=== PATIENT | female | born 1990 | race Caucasian/White ===

== ENCOUNTER 2020-02-28 17:11 | Inpatient (IN) | payer OTHER, SELFPAY ==
--- NOTE | ~2020-02-28 | US_ITS ---
EXAMINATION: US breast BI limited EXAM DATE: 02/28/2020 17:57 INDICATION: Periareolar erythema, breast-feeding. Mastitis. Rule out abscess. TECHNIQUE: Multiple grayscale and Doppler images of the retroareolar regions bilaterally were obtaine d (by a technologist who performed the scan) and subsequently reviewed. There is no prior study for comparison. FINDINGS: Dilated tubular structures consistent with lactating ducts. No abscess identified in either breast. C onsider mastitis. IMPRESSION: 1. No retroareolar abscess. Reviewed, dictated and finalized at location A. IMPRESSION: 1. No retroareolar abscess.
[2020-02-28 17:17] VITALS: BP 110/61; PULSE 141; RESP 16; TEMP 37.2; O2SAT 97
--- NOTE | 2020-02-28 17:38 | ED.SKABFB ---
HPI - Skin/Abscess/Foreign Bdy General Chief complaint: Skin/Abscess/Foreign Body <TYRONE Browne Last Filed: 02/28/20 20:28> Stated complaint: rash on breast, painful, fever, possible mastitis <TYRONE Browne Last Filed: 02/28/20 20:28> Time Seen by Provider: 02/28/20 17:18 <TYRONE Browne Last Filed: 02/28/20 20:28> Source: patient <TYRONE Browne Last Filed: 02/28/20 20:28> Mode of arrival: ambulatory <TYRONE Browne Last Filed: 02/28/20 20:28> Limitations: no limitations <TYRONE Browne Last Filed: 02/28/20 20:28> History of Present Illness HPI narrative: This is a 29 year old female that presents to the ER for rash to bilateral breasts since yesterday. Reports redness, warmth and pain. Reports fevers as high as 103. Reports she was weaning and recently completely stopped pumping and breast feeding 3 days ago. Also reports vomiting. Denies purulent drainage. <TYRONE Browne Last Filed: 02/28/20 20:28> Related Data Home medications: Home Medications Medication Instructions Recorded Confirmed No Home Medications 02/28/20 02/28/20 <TYRONE Browne Last Filed: 02/28/20 20:28> Allergies/Adverse reactions: Allergies Allergy/AdvReac Type Severity Reaction Status Date / Time No Known Allergies Allergy Verified 02/28/20 17:24 <TYRONE Browne Last Filed: 02/28/20 20:28> Review of Systems Review of Systems: Narrative: CONSTITUTIONAL: Reports fever GASTROINTESTINAL: Reports vomiting SKIN: Reports erythema and warmth <TYRONE Browne Last Filed: 02/28/20 20:28> All systems reviewed & are unremarkable except as noted in HPI and below <TYRONE Browne Last Filed: 02/28/20 20:28> FORMERLY [facility] Family History Family History: Family History (Updated 04/23/20 @ 20:51 by Lizzie Doherty RN) Father Diabetes mellitus Hypertension <Ana Rosa Dao PA-C - Last Filed: 02/28/20 20:28> Social History Social History: Social History (Updated 02/28/20 @ 20:23 by Ana Rosa Dao PA-C) Smoking status: Never smoker Alcohol intake: never Substance use: never Gender identity (if verbalized by the patient): Female Spiritual care concerns: No Agree to blood products: Yes <Ana Rosa Dao PA-C - Last Filed: 02/28/20 20:28> Exam Narrative: Exam Narrative: GENERAL: Well-appearing, well-nourished, and in no acute distress. HEAD: Normocephalic, atraumatic. EYES: EOMI. CHEST: No respiratory distress. HEART: Tachycardic, regular rhythm. No murmur heard. Normal peripheral pulses. EXTREMITIES: Normal range of motion. No edema. SKIN: Warm, dry, no rash. NEURO: No focal deficits. Alert and oriented x3. PSYCH: Normal mood and affect BREAST: Bilateral breasts with moderate erythema and warmth <Ana Rosa Dao PA-C - Last Filed: 02/28/20 20:28> Course [employer]ER/PA Physician Supervision Attestation for Ana Rosa Dao at 1852. [id number] with the patient and her sister, the patient reports sore tender red breasts since November. She has been breast-feeding her 8-month-old baby, and stopped 2 days ago. She tried using her breast pump and that was also too painful to continue. She has had fever chills and vomiting in the last 2 days. She had seen her INJECTION MOLDING MACHINE SETTER who recommended some lotion. Now she has bilateral cellulitis surrounding the nipples including a good portion of the breast. I explained that we would give her IV antibiotics here, and possibly keep her overnight for more IV antibiotics. She agrees with the plan. Her has the baby. <Jessica Mesa MD - Last Filed: 02/28/20 22:30> Consultations Consultation #1: Spoke with Dr. Dior about patient and work-up who will admit for further antibiotics and observation <Ana Rosa Dao PA-C - Last Filed: 02/28/20 20:28> Date: 02/28/20 <Ana Rosa Dao PA-C - Last Filed: 02/28/20 20:28> Time:
[2020-02-28 17:54] LABS: Basophils Absolute Auto 0.1 K/mm3 (0.0-0.1); Basophils Percent Auto 0.3 % (0.2-1.2); Eosinophils Absolute Auto 0.1 K/mm3 (0-0.3); Eosinophils Percent Auto 0.4 % (0-4.4); Hematocrit 39.7 % (37.0-47.0); Immature Granulocyte Absolute 0.12 K/mm3 (0.00-0.031); Immature Granulocyte Percent A 0.6 % (0-0.5); Lymphocytes Percent Auto 4.7 % (18.3-44.2); Mean Corpuscular HGB Conc 32.7 g/dl (32-36); Mean Corpuscular Hemoglobin 28.9 pg (26-34); Mean Corpuscular Volume 88.2 fl (80-100); Mean Platelet Volume 11.1 fl (7.4-10.4); Monocytes Absolute Auto 1.3 K/mm3 (0.1-0.6); Monocytes Percent Auto 6.9 % (2.6-8.5); Neutrophils Absolute Auto 16.6 K/mm3 (1.3-6.7); Neutrophils Percent Auto 87.1 % (45.5-73.1); Platelet Count Result 201 k/mm3 (150-375); White Blood Count 19.1 K/mm3 (4.5-10.0)
[2020-02-28 18:08] LABS: Lactic Acid Reflex 1.2 mmol/L (0.7-2.1)
[2020-02-28 18:10] LABS: Blood Urea Nitrogen 12 mg/dL (7-17); Calcium 9.1 mg/dL (8.4-10.2); Carbon Dioxide 24 mmol/L (22-30); Chloride 101 mmol/L (98-107); Estimated CRCL calculation 114 ml/min; Estimated Glomerular Filt Rate > 60; Glucose 133 mg/dL (65-105); Potassium 3.4 mmol/L (3.4-5.0); Sodium 135 mmol/L (137-145)
[2020-02-28] MEDS: SODIUM CHLORIDE 0.9% IV 1,000 ML 999 ML IV CONT ×2 (18:11→19:37)
[2020-02-28 18:14] VITALS: BP 122/67; PULSE 116; RESP 22; O2SAT 99
[2020-02-28] MEDS: KETOROLAC 30 MG/ML VIAL (*BKC) IV PUSH (18:20)
[2020-02-28 18:50] LABS: Erythrocyte Sedimentation Rate 32 mm/hr (0-20)
[2020-02-28 19:14] VITALS: BP 106/89; PULSE 112; RESP 23; O2SAT 96
[2020-02-28 19:37] VITALS: TEMP 37.2
[2020-02-28 20:00] VITALS: BP 115/64; PULSE 107; RESP 20; TEMP 37.3; O2SAT 99; BMI 28.9
[2020-02-28 20:35] VITALS: BP 100/59; PULSE 106; RESP 99; O2SAT 100
[2020-02-28] MEDS: SODIUM CHLORIDE 0.9% IV 1,000 ML 125 ML IV CONT (21:07)
[2020-02-28] MEDS: DICLOXACILLIN SODIUM 250 MG CAPSULE 500 MG PO (21:07)
[2020-02-29] MEDS: KETOROLAC 30 MG/ML VIAL (*BKC) IV PUSH ×2 (01:57→08:34)
[2020-02-29 04:00] VITALS: BP 102/57; PULSE 82; RESP 18; TEMP 36.6; O2SAT 100
[2020-02-29] MEDS: SODIUM CHLORIDE 0.9% IV 1,000 ML 125 ML IV CONT (05:18)
--- NOTE | 2020-02-29 07:17 | PM.IMHP ---
H&P: HPI History of Present Illness Chief complaint: Bilateral mastitis Narrative: Luz Barraza is a 29 year old female patient who was seen through the ER complaining of mastitis. [place] [id number] was placed on IV antibiotics and is feeling much better this morning. Review of Systems Review of Systems: All systems reviewed & are unremarkable except as noted in HPI and below PMFSH Family History Family History Father Diabetes mellitus Hypertension Social History Social History Smoking status: Never smoker Alcohol intake: never Substance use: never Gender identity (if verbalized by the patient): Female Spiritual care concerns: No Agree to blood products: Yes Meds Home Medications and Allergies Home Medications Medication Instructions Recorded Confirmed Type No Home Medications 02/28/20 02/28/20 History Allergies Allergy/AdvReac Type Severity Reaction Status Date / Time No Known Allergies Allergy Verified 02/28/20 17:24 Vital Signs Vital Signs - 24 hr 02/28/20 17:17 02/28/20 18:14 02/28/20 19:14 Temperature 99 F Pulse Rate 141 H 116 H 112 H Respiratory Rate 16 22 H 23 H Blood Pressure 110/61 122/67 106/89 Pulse Oximetry 97 99 96 02/28/20 19:37 02/28/20 20:00 02/28/20 20:35 Temperature 98.9 F 99.2 F Pulse Rate 107 H 106 H Respiratory Rate 20 99 H Blood Pressure 115/64 100/59 L Pulse Oximetry 99 100 02/29/20 04:00 Temperature 98 F Pulse Rate 82 Respiratory Rate 18 Blood Pressure 102/57 L Pulse Oximetry 100 Exam Const: General: no acute distress Eyes: General: appearance normal, both eyes and all related structures Neck: Neck: supple and no JVD Thyroid: thyroid normal Resp: Effort & Inspection: normal respiratory effort Auscultation: clear to auscultation bilaterally Cardio: Rate: regular rate Rhythm: regular rhythm GI: Inspection: non-distended GI Palp: Yes Soft to palpation, No Tenderness to palpation present (GI) and No Guarding due to palpation present (GI) Auscultation: normal bowel sounds : General: Yes bladder normal to palpation External Female Exam: normal external appearance Speculum Exam - Vagina: normal vaginal discharge and No vaginal bleeding Speculum Exam - Cervix: nontender Bimanual exam- vagina & uterus: bladder normal to palpation and No Cervical tenderness present OB/external & speculum: No vaginal bleeding Skin: General skin exam: normal color and erythema (Bilateral breast erythema without heat) Extrem: General: normal to inspection and no edema Psych: Mental Status: mental status grossly normal Affect: normal affect H&P: Results Labs Labs: Short CBC 02/28/20 Range/Units 17:44 WBC 19.1 H (4.5-10.0) K/mm3 Hgb 13.0 (12.0-15.0) g/dL Hct 39.7 (37.0-47.0) % Plt Count 201 (150-375) k/mm3 BMP 02/28/20 17:44 Sodium 135 L Potassium 3.4 Chloride 101 Carbon Dioxide 24 BUN 12 Creatinine 0.60 L Glucose 133 H Calcium 9.1 Assessment and Plan Additional Plan Impression bilateral mastitis Plan: IV antibiotics have been given. She is markedly improved. She will go home on p.o. antibiotics
--- NOTE | 2020-02-29 07:23 | PM.DS ---
DS: Summary Time Spent with Patient Time attestation: Total time spent providing and/or coordinating discharge services: Exam Const: General: no acute distress Eyes: General: appearance normal, both eyes and all related structures Neck: Neck: supple and no JVD Thyroid: thyroid normal Resp: Effort & Inspection: normal respiratory effort Auscultation: clear to auscultation bilaterally Cardio: Rate: regular rate Rhythm: regular rhythm GI: Inspection: non-distended GI Palp: Yes Soft to palpation, No Tenderness to palpation present (GI) and No Guarding due to palpation present (GI) Auscultation: normal bowel sounds : General: Yes bladder normal to palpation External Female Exam: normal external appearance Speculum Exam - Vagina: normal vaginal discharge and No vaginal bleeding Speculum Exam - Cervix: nontender Bimanual exam- vagina & uterus: bladder normal to palpation and No Cervical tenderness present OB/external & speculum: No vaginal bleeding Skin: General skin exam: no rashes or lesions noted Extrem: General: normal to inspection and no edema Psych: Mental Status: mental status grossly normal Affect: normal affect DS: Data Data Completed and Pending Labs on day of discharge: Labs from last 24 hours 02/28/20 02/28/20 02/28/20 17:44 17:44 17:44 WBC 19.1 H RBC 4.50 Hgb 13.0 Hct 39.7 MCV 88.2 MCH 28.9 MCHC 32.7 RDW 13.0 Plt Count 201 MPV 11.1 H Immature Gran % (Auto) 0.6 H Neut % (Auto) 87.1 H Lymph % (Auto) 4.7 L [place] % (Auto) 6.9 Eos % (Auto) 0.4 Baso % (Auto) 0.3 Lymph # (Auto) 0.90 [place] # (Auto) 1.3 H Eos # (Auto) 0.1 Baso # (Auto) 0.1 Abs Immat Gran (auto) 0.12 H Absolute Neuts (auto) 16.6 H Absolute Nucleated RBC 0.0 Nucleated RBC % 0.0 ESR 32 H Sodium 135 L Potassium 3.4 Chloride 101 Carbon Dioxide 24 BUN 12 Creatinine 0.60 L Estim Creat Clear Calc 114 Estimated GFR > 60 Glucose 133 H Lactic Acid 1.2 Calcium 9.1 C-Reactive Protein 8.0 H Discharge Plan Discharge Attending physician on discharge: Alex Inman Discharging Clinician: Alex Inman Patient Disposition: Home, Self-Care Activity: may shower and no straining Diet: heart healthy Patient Instructions: Antibiotic Form, Mastitis (DC) Stand Alone Forms: General Discharge Information Follow-up/Referrals: Alex Inman MD [Physician] - Discharge Medications: New cephalexin [Keflex] 500 mg capsule 500 mg PO Q8H Qty: 30 RF: 0 No Action No Home Medications RF: 0 Date of admission: 02/28/20 19:12 Primary Care Provider: Garcia Jc Admitting Provider: Saud Dior Attending physician on admission: Saud Dior Condition: Stable
[2020-02-29] MEDS: DICLOXACILLIN SODIUM 250 MG CAPSULE 500 MG PO (08:38)
== END 2020-02-29 09:25 | disposition home or self-care (01) | DRG 776 ==
LOC: ANHED 19:20 → ANH2MED 02-29 03:30
PROVIDERS: Physician Assistant; Admitting Provider Student in an Organized Health Care Education/Training Program; Emergency Provider Emergency Medicine; PCP Internal Medicine; Visit Provider Obstetrics & Gynecology
DX: O91.23 Nonpurulent mastitis associated with lactation (principal)
CPT/HCPCS: 36415; 76642; 80048; 83605; 85025; 85652; 86140; 87040; 96361; 96365; 96375; 99285; A9270; J0131; J1885; J3370; J7030

== ENCOUNTER 2022-10-09 08:23 | Emergency (ER) | payer OTHER, SELFPAY ==
[2022-10-09 08:35] VITALS: BP 134/71; PULSE 71; RESP 16; TEMP 36.6; O2SAT 99
--- NOTE | 2022-10-09 08:45 | ED.URI ---
HPI - URI/Sore Throat General Chief Complaint: Upper Respiratory Infection Stated Complaint: sore throat Time Seen by Provider: 10/09/22 08:46 Source: patient and RN notes reviewed Mode of arrival: ambulatory Limitations: no limitations History of Present Illness HPI Narrative: 32-year-old female presents concern for sore throat since Tuesday. Reports she has painful swallowing, she has been using DayQuil NyQuil. She reports postnasal drainage, denies cough, nasal congestion, rhinorrhea, nausea, headache. She reports feeling feverish at night time. 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 MD elicited complaint: sore throat Related Data Allergies Allergy/AdvReac Type Severity Reaction Status Date / Time No Known Allergies Allergy Verified 10/09/22 08:38 Review of Systems Review of Systems: CONSTITUTIONAL: Reports malaise EYES: Denies visual changes, redness, or discharge. ENT: Denies rhinorrhea, congestion, sinus pain, otalgia. Reports postnasal drainage and sore throat. CARDIOVASCULAR: Denies chest pain, palpitations, or edema. RESPIRATORY: Denies cough. Denies dyspnea. GASTROINTESTINAL: Denies abdominal pain, nausea, vomiting, diarrhea SKIN: Denies rash or itching. MUSCULOSKELETAL: Denies myalgia. NEUROLOGIC: Denies headache. All systems reviewed & are unremarkable except as noted in HPI and below PMFSH Family History Family History Father Diabetes mellitus Hypertension Social History Social History Smoking status: Never smoker Alcohol intake: never Substance use: never Gender identity (if verbalized by the patient): Female Spiritual care concerns: No Agree to blood products: Yes Comments At time of signature, agree with nursing past medical, surgical, social and family history. There is no relevant family history pertinent to the presenting complaint Exam Narrative: GENERAL: Well-appearing, well-nourished, and in no acute distress. HEAD: Normocephalic EYES: PERRLA, conjunctivae clear ENT: Nares clear, turbinates edematous and erythematous, clear discharge. Mucous membranes moist. TM pearly simon with dull light reflex bilaterally; no tragal tenderness. Oropharynx erythematous without lesions. Tonsils enlarged 3+ and without exudate, no drooling, no hoarseness, no trismus, uvula midline. NECK: Supple. No lymphadenopathy CHEST: Clear to auscultation, breath sounds equal. No wheezing, rhonchi, rales, or stridor. No respiratory distress, speaks in full sentences. HEART: Regular rate and rhythm. No murmur heard. SKIN: Warm, dry, no rash. NEURO: Alert and oriented x3. PSYCH: Normal mood and affect Course Course Emergency Course: Patient is aware of diagnosis, understands and agrees to treatment plan. Anticipatory guidance given. Patient agrees to follow-up as directed and is aware of reasons to seek care at the emergency department. Portions of this record may have been created with voice recognition software Level of Care: Express Care Visit Vital Signs Vital signs: Vital Signs Temperature 97.8 F 10/09/22 08:35 Pulse Rate 71 10/09/22 08:35 Respiratory Rate 16 10/09/22 08:35 Blood Pressure 134/71 10/09/22 08:35 Pulse Oximetry 99 10/09/22 08:35 Oxygen Delivery Room Air 10/09/22 08:35 Temperature 97.8 F 10/09/22 08:35 Pulse Rate 71 10/09/22 08:35 Respiratory Rate 16 10/09/22 08:35 Blood Pressure 134/71 10/09/22 08:35 Pulse Oximetry 99 10/09/22 08:35 Oxygen Delivery Room Air 10/09/22 08:35 Reviewed. MDM - URI/Sore Throat MDM Narrative Medical decision making narrative: Differential diagnosis considered: [place] virus, strep pharyngitis, allergic rhinitis, upper respiratory tract infection, sinusitis, rhinosinusitis, nasopharyngitis. viral pharyngitis, otitis media, otitis externa, pne
== END 2022-10-09 09:02 | disposition home or self-care (01) ==
PROVIDERS: Emergency Provider Nurse Practitioner; PCP Internal Medicine
DX: J03.90 Acute tonsillitis, unspecified (principal)
CPT/HCPCS: 87081; 87880; 99213; G0463

== ENCOUNTER 2023-08-28 16:42 | Emergency (ER) | payer OTHER, SELFPAY ==
[2023-08-28 16:56] VITALS: BP 131/84; PULSE 73; RESP 16; TEMP 37.3; O2SAT 99
--- NOTE | 2023-08-28 16:57 | ED.EYEPROB ---
HPI - Eye Problem General Chief complaint: Eye Problems Stated complaint: Eyes Irritation Time Seen by Provider: 08/28/23 17:00 Source: patient and RN notes reviewed Mode of arrival: ambulatory Limitations: no limitations History of Present Illness HPI Narrative: 32-year-old female presents concern for left eye redness, discomfort, copious drainage. Reports she noticed it this morning. She works at a school. She denies vision changes. chief complaint: eye redness Related Data Allergies Allergy/AdvReac Type Severity Reaction Status Date / Time No Known Allergies Allergy Verified 08/28/23 17:01 Review of Systems Review of Systems: CONSTITUTIONAL: Denies malaise, chills, sweats, or fever. EYES: Denies visual changes. Reports left eye redness, irritation, discharge. ENT: Denies rhinorrhea, congestion, sinus pain, otalgia or sore throat. SKIN: Denies rash or itching. NEUROLOGIC: Denies numbness, weakness, or headache. PSYCHIATRIC: Denies anxiety or depression. All systems reviewed & are unremarkable except as noted in HPI and below PMFSH Family History Family History Father Diabetes mellitus Hypertension Social History Social History Smoking status: Never smoker Alcohol intake: never Substance use: never Gender identity (if verbalized by the patient): Female Spiritual care concerns: No Agree to blood products: Yes Comments At time of signature, agree with nursing past medical, surgical, social and family history. There is no relevant family history pertinent to the presenting complaint Exam Narrative: GENERAL: Well-appearing, well-nourished, and in no acute distress. HEAD: Normocephalic, atraumatic. EYES: PERRLA, right sclera clear, and EOMI. No nystagmus. Left sclera and bilateral conjunctivae injected with yellow copious discharge. Upper and lower eyelid unremarkable, no periorbital edema noted ENT: Nares clear, turbinates pink, no rhinorrhea or epistaxis. Mucous membranes moist. TM pearly simon with sharp light reflex bilaterally; no tragal tenderness. NECK: Supple. CHEST: No respiratory distress. Speaks in full sentences. HEART: Regular rate and rhythm. SKIN: Warm, dry, no visible rash. NEURO: Alert and oriented x3. PSYCH: Normal mood and affect Course Course Emergency Course: Patient is aware of diagnosis, understands and agrees to treatment plan. Anticipatory guidance given. Patient agrees to follow-up as directed and is aware of reasons to seek care at the emergency department. Portions of this record may have been created with voice recognition software Level of Care: Express Care Visit Vital Signs Vital signs: Vital Signs Temperature 99.2 F 08/28/23 16:56 Pulse Rate 73 08/28/23 16:56 Respiratory Rate 16 08/28/23 16:56 Blood Pressure 131/84 08/28/23 16:56 Pulse Oximetry 99 08/28/23 16:56 Oxygen Delivery Room Air 08/28/23 16:56 Temperature 99.2 F 08/28/23 16:56 Pulse Rate 73 08/28/23 16:56 Respiratory Rate 16 08/28/23 16:56 Blood Pressure 131/84 08/28/23 16:56 Pulse Oximetry 99 08/28/23 16:56 Oxygen Delivery Room Air 08/28/23 16:56 Reviewed. MDM - Eye Problem MDM Narrative Medical decision making narrative: Consideration of the following conditions may be warranted for the presenting problem, they are not final diagnoses: Bacterial conjunctivitis, allergic conjunctivitis, viral conjunctivitis, foreign body, blepharitis, chalazion, hordeolum, corneal abrasion, preseptal cellulitis, orbital cellulitis. No evidence of proptosis, ophthalmoplegia, vision loss, pain with eye movement. Exam findings show no acute concerns or changes; patient is non-toxic appearing and is in no distress. Patient is appropriate for outpatient treatment and follow-up. Critical Care Time Critical Care Time Critical Care Time: No
== END 2023-08-28 17:09 | disposition home or self-care (01) ==
PROVIDERS: Emergency Provider Nurse Practitioner; PCP Internal Medicine
DX: H10.89 Other conjunctivitis (principal)
CPT/HCPCS: 99213; G0463

== ENCOUNTER 2024-10-01 16:28 | Emergency (ER) | payer OTHER, SELFPAY ==
--- NOTE | 2024-10-01 16:30 | ED.URI ---
HPI - URI/Sore Throat General Chief Complaint: Upper Respiratory Infection Stated Complaint: sore throat Time Seen by Provider: 10/01/24 16:43 Source: patient, RN notes reviewed and old records reviewed Mode of arrival: ambulatory Limitations: no limitations History of Present Illness HPI Narrative: 34-year-old female presents to the [facility] with complaints of a sore throat that started this morning. Has taken Tylenol. Denies any other symptoms other than the sore throat. Onset (ago): hour(s) Related Data Home Medications Medication Instructions Recorded Confirmed bupropion HCl 150 mg 24 hr tablet, 150 mg PO DAILY 10/01/24 10/01/24 extended release Allergies Allergy/AdvReac Type Severity Reaction Status Date / Time No Known Allergies Allergy Verified 10/01/24 16:30 Review of Systems Review of Systems: All systems reviewed & are unremarkable except as noted in HPI and below Constitutional: Constitutional: Reports no additional constitutional complaints ENT: Reports as per HPI and Reports sore throat Cardiovascular: Cardiovascular: Reports no additional cardiovascular complaints, Denies chest pain and Denies dyspnea Respiratory: Respiratory: Reports no additional respiratory complaints, Denies chest congestion, Denies cough and Denies dyspnea Gastrointestinal: Gastrointestinal: Reports no additional gastrointestinal complaints, Denies abdominal pain, Denies nausea and Denies vomiting Musculoskeletal: Musculoskeletal: Reports no additional musculoskeletal complaints Integumentary/Breasts: Skin/Breast: Reports system reviewed and no additional complaints, except as docu PMFSH Family History Family History Father Diabetes mellitus Hypertension Social History Social History Smoking status: Never smoker Alcohol intake: never Substance use: never Gender identity (if verbalized by the patient): Female Spiritual care concerns: No Agree to blood products: Yes Comments At the time of my signature, I reviewed and agree with the nursing past medical, surgical, social, and family history. There is no relevant family history pertinent to the patient complaint. Exam Const: General: cooperative, healthy appearing, comfortable, no acute distress, well developed, alert and well nourished Nutritional Appearance: well nourished Orientation/consciousness: patient oriented x3 Limitations: no limitations HENMT: Head: normal to inspection Ears: hearing grossly normal bilaterally and external ears normal Face/Nose/Sinus: Normal external nose present, normal facial exam and face symmetric Face and sinus: normal facial exam and face symmetric Mouth: Yes Normal oral and palatal mucosa present, Yes lip normal and Yes tongue normal Throat: uvula midline, abnormal tonsil bilateral hypertrophy 2+; no erythema and no exudates, postnasal drainage and no uvular edema Eyes: General: appearance normal, both eyes and all related structures Alignment and Position: alignment normal Periorbital: periorbital findings normal Neck: Neck: normal visual inspection, full ROM, no lymphadenopathy and no meningeal signs Chest: Chest palpation & inspection: normal inspection of the chest Resp: Effort & Inspection: normal respiratory effort and able to speak in complete sentences Auscultation: clear to auscultation bilaterally, no crackles, no rales, no rhonchi and no wheezes Cardio: Rate: regular rate Skin: General skin exam: normal color and no rashes or lesions noted Lesions: no lesions Rashes: no rashes Wounds: no wounds Neuro: General: patient oriented x3, gait normal, tone normal, moves all extremities and no meningeal signs Cognition (Neuro): normal cognition Speech: normal speech Gait exam (Neuro): Normal gait present Extrem: General: normal to inspection, full ROM, capillary refill normal and normal gait Psych: Appearance: grossly normal and well kempt Mental Status: mental status grossly normal Speech and movement: Normal speech and movement present and Clear speech present Affect: normal affect Attitude: cooperative Course Course Level of Care: Express Care Visit Vital Signs Vital signs: Vital Signs Temperature 98.3 F 10/01/24 16:45 Pulse Rate 72 10/01/24 16:45 Respiratory Rate 16 10/01/24 16:45 Blood Pressure 132/80 10/01/24 16:45 Pulse Oximetry 99 10/01/24 16:45 Oxygen Delivery Room Air 10/01/24 16:45 Temperature 98.3 F 10/01/24 16:45 Pulse Rate 72 10/01/24 16:45 Respiratory Rate 16 10/01/24 16:45 Blood Pressure 132/80 10/01/24 16:45 Pulse Oximetry 99 10/01/24 16:45 Oxygen Delivery Room Air 10/01/24 16:45 Reviewed MDM - URI/Sore Throat MDM Narrative Medical decision making narrative: Patient sitting comfortably in exam room. Nontoxic, vitals stable. Patient in no acute distress. Patient presents with sore throat since this morning Strep test positive Patient appropriate for outpatient treatment and follow-up Discharge instructions reviewed with patient, as well as provided in writing per nursing staff. The instructions also include specific and strict return/GO TO THE ER as well as f/u information. All questions have been answered, and the patient deny any further questions with discharge and discharge plan. Some parts of this dictation were generated by voice recognition software and may contain typographical and/or grammatical inaccuracies. Differential Diagnosis Differential diagnosis: Likely upper respiratory infection, otitis media and pharyngitis Lab Data Labs: Lab Results 10/01/24 Range/Units 16:56 POC Grp A Strep Screen Positive (Negative) Reviewed Critical Care Time Critical Care Time Critical Care Time: No Discharge Plan Discharge Clinical Impression: Strep throat Patient Disposition: Home, Self-Care Condition: Stable Instructions: Antibiotic Form, Strep Throat (ED) Additional Instructions: After 24-48 hours on antibiotics, Throw the toothbrush away, start using a new one. Please be sure to wash bed linens especially pillow cases. Repeat once you finish the antibiotics. Do not share drinks. Take Motrin alternating with Tylenol for pain and fever alternating every 4 hours. Increase fluids, avoid caffeine. Give plenty of water, juice, Gatorade, Pedialyte, ice pops in Jell-O Follow up with Primary provider if not getting better this week For new or worsening symptoms go directly to the emergency room Patient Language: Swedish Prescriptions: New amoxicillin 875 mg tablet 875 mg PO Q12H Qty: 20 0RF No Action bupropion HCl 150 mg tablet extended release 24 hr 150 mg PO DAILY Follow-up/Referrals: UNKNOWN,DOCTOR [Primary Care Provider] - Stand Alone Forms: Work/School Release IP Time of Disposition: 16:57
[2024-10-01 16:45] VITALS: BP 132/80; PULSE 72; RESP 16; TEMP 36.8; O2SAT 99
[2024-10-01 16:57] LABS: EDSTREPNEGPOS1 Positive (Negative)
== END 2024-10-01 17:02 | disposition home or self-care (01) ==
PROVIDERS: Emergency Provider Nurse Practitioner
DX: J02.0 Streptococcal pharyngitis (principal)
CPT/HCPCS: 87880; 99213; G0463

== ENCOUNTER 2025-01-04 15:44 | Emergency (ER) | payer OTHER, SELFPAY ==
[2025-01-04 15:53] VITALS: BP 140/72; PULSE 99; RESP 16; TEMP 37.4; O2SAT 100
[2025-01-04 16:03] VITALS: PULSE 99; RESP 16; O2SAT 100
--- NOTE | 2025-01-04 16:12 | ED.URI ---
HPI - URI/Sore Throat General Chief Complaint: Upper Respiratory Infection Stated Complaint: Sore Throat Time Seen by Provider: 01/04/25 16:12 Source: patient Mode of arrival: ambulatory Limitations: no limitations History of Present Illness HPI Narrative: 34-year-old female presents with complaint of sore throat, fatigue, body aches for 2 days. Afebrile. Denies nausea vomiting. Patient is a elementary school band director. All systems reviewed and negative except as noted above. Related Data Home Medications ?Medication ?Instructions ?Recorded ?Confirmed ?Last Taken ?Type bupropion HCl 150 mg 24 hr tablet, 150 mg PO DAILY 10/01/24 10/01/24 Unknown History extended release Allergies Allergy/AdvReac Type Severity Reaction Status Date / Time No Known Allergies Allergy Verified 01/04/25 15:47 Review of Systems Review of Systems: CONSTITUTIONAL: Denies fever, chills, or sweats. reports fatigue. EYES: Denies visual changes, redness, or discharge. ENT: Denies rhinorrhea, congestion . Reports sore throat. Denies otalgia. CARDIOVASCULAR: Denies chest pain, palpitations, or edema. RESPIRATORY: Denies cough or dyspnea. GASTROINTESTINAL: Denies abdominal pain, nausea, vomiting, or diarrhea. GENITOURINARY: Denies dysuria or hematuria. SKIN: Denies rash or itching. MUSCULOSKELETAL: Denies back pain, joint pain . Reports myalgia. NEUROLOGIC: Denies headache, numbness, or weakness. PSYCHIATRIC: Denies anxiety or depression. All other systems reviewed are negative, except as documented in HPI. [facility] Family History Family History Father Diabetes mellitus Hypertension Social History Social History Smoking status: Never smoker Alcohol intake: never Substance use: never Gender identity (if verbalized by the patient): Female Spiritual care concerns: No Agree to blood products: Yes Comments At time of signature, agree with nursing past medical, surgical, social and family history. There is no relevant family history pertinent to the presenting complaint. Exam Narrative: GENERAL: This is a well-nourished, well-developed patient, in no apparent distress. HEAD: normocephalic, atraumatic. EYES: PERRL. Sclera clear/white. Vision is grossly intact. EARS: External ears normal, auditory canals clear and without drainage, TMs normal without perforation. Hearing grossly intact. NOSE: External nose normal with no obvious nasal discharge, nares without redness, no rhinorrhea. THROAT: Mucous membranes moist, erythematous, tonsils 1+ bilaterally without exudates NECK: Neck supple, tender bilateral anterior cervical lymphadenopathy. Denies masses or thyromegaly. CARDIOVASCULAR: Regular rate and rhythm without murmurs, gallops, or rubs. RESPIRATORY: Clear to auscultation. Breath sounds equal bilaterally. No wheezes, rales, or rhonchi. SKIN: warm, Dry, intact with no suspicious lesions or rash, good texture and turgor. NEURO: awake, alert, and oriented to person, place and time. There were no obvious focal neurologic abnormalities. EXTREMITIES: No joint tenderness, effusion, or edema noted. Course Course Level of Care: Express Care Visit Vital Signs Vital signs: Vital Signs Temperature 37.4 C 01/04/25 15:53 Pulse Rate 99 01/04/25 15:53 Respiratory Rate 16 01/04/25 15:53 Blood Pressure 140/72 01/04/25 15:53 Pulse Oximetry 100 01/04/25 15:53 Oxygen Delivery Room Air 01/04/25 15:53 Temperature 37.4 C 01/04/25 15:53 Pulse Rate 99 01/04/25 16:03 Respiratory Rate 16 01/04/25 16:03 Blood Pressure 140/72 01/04/25 15:53 Pulse Oximetry 100 01/04/25 16:03 Oxygen Delivery Room Air 01/04/25 15:53 reviewed MDM - URI/Sore Throat MDM Narrative Medical decision making narrative: positive strep. Will treat with amoxicillin. Patient is well-appearing, nontoxic. Please be advised this is a medical document. It is intended for [id number] communication. It is written in medical language and may contain unfamiliar abbreviations or verbiage. Medical documents are intended to carry relevant information, facts as evident, and the clinical opinion of the practitioner at the time of the encounter. This report may have been done utilizing a voice recognition system. Attempts have been made to correct errors. However, there may be uncorrected grammatical, spelling, and recognition errors present. The file time of this note does not necessarily represent the time of service. Differential Diagnosis Differential diagnosis: Likely upper respiratory infection, sinusitis, influenza and pharyngitis Lab Data Labs: Lab Results 01/04/25 Range/Units 16:14 POC Influenza A Ag Negative (Negative) POC Influenza B Ag Negative (Negative) POC SARS CoV-2 Ag Negative (Negative) POC Grp A Strep Screen Positive (Negative) Discharge Plan Discharge Clinical Impression: Strep throat Patient Disposition: Home, Self-Care Condition: Stable Instructions: Antibiotic Form, Strep Throat (ED) Additional Instructions: your strep test was positive today. Take antibiotic as prescribed until gone. Change toothbrush review taking antibiotic for 24-48 hours. Take Tylenol or ibuprofen every 6-8 hours as needed for pain and fever. Drink at least 64 oz of water a day. Follow-up with your doctor if symptoms are not improving. Patient Language: Burmese Prescriptions: New amoxicillin 875 mg tablet 875 mg PO Q12H 10 Days Qty: 20 0RF No Action bupropion HCl 150 mg tablet extended release 24 hr 150 mg PO DAILY Follow-up/Referrals: PHYSICIAN,DEVELOPMENT GEOLOGIST [Primary Care Provider] - Time of Disposition: 16:17
[2025-01-04 16:16] LABS: EDCOVIDSCREEN Negative (Negative); EDINFLUASCREEN Negative (Negative); EDINFLUBSCREEN Negative (Negative); EDSTREPNEGPOS1 Positive (Negative)
== END 2025-01-04 16:25 | disposition home or self-care (01) ==
PROVIDERS: Emergency Provider Nurse Practitioner Family
DX: J02.0 Streptococcal pharyngitis (principal); Z20.822 Contact with and (suspected) exposure to COVID-19
CPT/HCPCS: 87426; 87804; 87880; 99213; G0463